=== PATIENT | female | born 1990 | race Caucasian/White ===

== ENCOUNTER 2019-06-27 13:32 | Inpatient (IN) ==
[2019-06-27 13:48] LABS: URINE SOURCE VOIDED
[2019-06-27] MEDS ORDERED: AMPICILLIN 2 GM in NS 100 ML IV ONE (14:03)
[2019-06-27] MEDS ORDERED: REGLAN PO PRN (14:03)
[2019-06-27] MEDS ORDERED: PEPCID PO PRN ×2 (14:03)
[2019-06-27] MEDS ORDERED: KEFZOL 2 GM/D5W 2 GM/50 ML IVPB IV PRN (14:03)
[2019-06-27] MEDS ORDERED: ZOFRAN IV PRN (14:03)
[2019-06-27] MEDS ORDERED: STADOL IV PRN (14:03)
[2019-06-27] MEDS ORDERED: TYLENOL PO PRN (14:03)
[2019-06-27] MEDS ORDERED: PEPCID IV PRN (14:03)
[2019-06-27 14:14] LABS: UR AMPHETAMINES QUAL NONE DETECTED (NONE DETECT); UR BARBITUATES QUAL NONE DETECTED (NONE DETECT); UR BENZODIAZEPIN QUAL NONE DETECTED (NONE DETECT); UR CANNABINOIDS QUAL NONE DETECTED (NONE DETECT); UR COCAINE QUAL NONE DETECTED (NONE DETECT); UR METHADONE QUAL NONE DETECTED (NONE DETECT); UR OPIATES QUAL NONE DETECTED (NONE DETECT); UR OXYCODONE QUAL NONE DETECTED (NONE DETECT); UR PCP QUAL NONE DETECTED (NONE DETECT)
[2019-06-27] MEDS ORDERED: SODIUM CHLORIDE 0.9% INJ SCH (14:15)
[2019-06-27] MEDS ORDERED: PITOCIN 30 UNITS/NS 30 UNIT/500 ML IV.SOLN IV SCH ×2 (14:15→16:30)
[2019-06-27] MEDS ORDERED: MINERAL OIL PO PRN (14:20)
[2019-06-27] MEDS ORDERED: XYLOCAINE-MPF 1% INJ PRN (14:21)
[2019-06-27] MEDS: LR 1,000 ML IV SCH ×2 (14:50→15:45)
[2019-06-27 14:54] LABS: BASO# 0.03 X1000 (0.0-0.2); BASO% 0.2 % (0.0-0.8); EOS# 0.16 X1000 (0.0-0.7); EOS% 0.8 % (0.0-10.0); HEMATOCRIT 36.4 % (37.0-47.0); HEMOGLOBIN 12.1 g/dL (12.0-16.0); IMM GRAN# 0.06 X1000 (0.0-0.04); IMM GRAN% 0.3 % (0.0-0.5); LYMPH# 2.56 X1000 (1.2-3.4); LYMPH% 13.6 % (20.5-51.1); MCH 28.1 PG (27-31); MCHC 33.2 g/dL (33-37); MCV 84.7 FL (81-99); MONO# 1.38 X1000 (0.11-0.59); MONO% 7.3 % (1.7-9.3); MPV 9.2 FL (7.4-10.4); NEUT# 14.64 X1000 (1.4-6.5); NEUT% 77.8 % (42.2-75.2); PLT 290 X1000 (130-400); RDW 14.3 % (11.5-14.5); WBC 18.83 X1000 (4.8-10.8)
--- NOTE | 2019-06-27 14:59 | Diag Imaging Result Doc PS360 ---
EXAM: US OBS COMPLETE > 14 WKS HISTORY: position TECHNIQUE: Limited OB ultrasound for position COMPARISON: None. FINDINGS: Limited ultrasound. Fetus appears to be in cephalic presentation. Electronically signed by James Meyer 06/27/2019 2:57 PM
[2019-06-27 15:06] LABS: BILIRUBIN URINE SMALL (NEGATIVE); BLOOD URINE MODERATE (NEGATIVE); COLOR YELLOW; GLUCOSE URINE NEGATIVE (NEGATIVE); KETONE URINE TRACE mg/dL (NEGATIVE); LEUKOCYTES URINE LARGE (NEGATIVE); NITRITE URINE NEGATIVE (NEGATIVE); PH URINE 6.5; PROTEIN URINE 70 mg/dL (NEGATIVE); SP GRAVITY URINE 1.034; TURBIDITY URINE HAZY (CLEAR); UROBILINOGEN URINE 6 mg/dL (NORMAL)
--- NOTE | 2019-06-27 16:20 | OPERATIVE NOTE ---
PROCEDURE DATE: 06/27/2019 PROCEDURE: Normal spontaneous vaginal delivery ESTIMATED BLOOD LOSS: 400 mL COMPLICATIONS: None ANESTHESIA: None FINDINGS: A live-born male , cephalic position. Apgars 8 and 9, 8 pounds 4 ounces. DESCRIPTION O F PROCEDURE: The patient presented to Labor and Delivery in active labor and underwent spontaneous rupture of membranes at approximately 9 cm. Went rapidly to complete. Received 1 dose of group B strep prophylaxis. She pushed for approximately 2 contractions and delivered over intact perineum a live-born , handed to the maternal abdomen. Uncomplicated delivery. The cord was clamped x2 and cut. The placenta delivered after approximately 20 minutes of third stage labor with Valsalva, intact with 3 vessel cord. The perineum was inspected and found to be hemostatic and intact.
--- NOTE | 2019-06-27 16:23 | HISTORY AND PHYSICAL ---
HISTORY OF PRESENT ILLNESS: The patient is a 28-year-old, 2, para 1, who has no local care. States she is about 38-1/2 weeks gestation from a care visit she made in [place], until about 28 weeks. She states that she had an abnormal 1 hour glucose at that time and no treatment post. She presents to labor and delivery in active phase of labor. Vertex presentation, unknown group B strep, and intact membranes. PREVIOUS MEDICAL HISTORY: Negative. PREVIOUS SURGICAL HISTORY: Negative. OB HISTORY: Pertinent for 1 vaginal delivery 7 years ago, 6 pounds and 5 ounces. No complications. GYNECOLOGICAL HISTORY: Negative. No STDs. MEDICINES: vitamins. ALLERGIES TO MEDICINES: None. FAMILY HISTORY: Noncontributory. REVIEW OF SYSTEMS: Negative for chest pain, shortness of breath, headache, cough, runny nose, fever, sore throat. PHYSICAL EXAMINATION: GENERAL: This is a well-developed, well-nourished woman, appearing her stated age. HEENT: Grossly normal. LUNGS: Unlabored breathing. HEART: Regular rate and rhythm. ABDOMEN: Gravid, obese, and protuberant. EXTREMITIES: Without clubbing, cyanosis, or edema. PELVIC EXAMINATION: At 5 cm, bulging bag of water per RN. ASSESSMENT: A 28-year-old 2, para 1, at 38-1/2 weeks gestation, in active phase of labor. 1. Ampicillin for group B strep prophylaxis for unknown group B strep. 2. Estimated weight is 3600 g. 3. Anticipate normal spontaneous vaginal delivery. 4. We will try to obtain records from previous medical doctor in [place]. 5. Ultrasound verifies vertex presentation. 6. well-being reassured, reactive tracing. 7. Rh neg, rhogam w/u post delivery [facility]
[2019-06-27 16:25] LABS: RAPID HIV PRESUMPTIVE NEGATIVE; RPR NON-REACTIVE (NONREACTIVE); RUBELLA SCREEN IMMUNE (IMMUNE)
[2019-06-27] MEDS ORDERED: AMBIEN PO PRN (16:28)
[2019-06-27] MEDS ORDERED: CYTOTEC PO PRN (16:28)
[2019-06-27] MEDS ORDERED: PERI MEDS (DERMOPLAST/NUPERCAINAL/TUCKS) MISC PRN (16:28)
[2019-06-27] MEDS ORDERED: BENADRYL PO PRN (16:28)
[2019-06-27] MEDS ORDERED: NORCO-10 PO PRN (16:28)
[2019-06-27] MEDS ORDERED: BENADRYL IV PRN (16:28)
[2019-06-27] MEDS ORDERED: HYDROXYZINE IM PRN (16:28)
[2019-06-27] MEDS ORDERED: PITOCIN IM PRN (16:28)
[2019-06-27] MEDS ORDERED: M-M-R II VACCINE SUBQ ONE (16:28)
[2019-06-27] MEDS ORDERED: BOOSTRIX VACCINE IM ONE (16:28)
[2019-06-27] MEDS ORDERED: ATARAX PO PRN (16:28)
[2019-06-27] MEDS ORDERED: NORCO-5 PO PRN (16:28)
[2019-06-27] MEDS ORDERED: PITOCIN 20 UNITS/NS 20 UNITS/1,000 ML IV.SOLN IV SCH (16:30)
[2019-06-27] MEDS ORDERED: AMPICILLIN 1 GM in NS 50 ML IV SCH (18:04)
[2019-06-27] MEDS: MOTRIN PO PRN (18:30)
[2019-06-28 05:17] LABS: BASO# 0.03 X1000 (0.0-0.2); BASO% 0.1 % (0.0-0.8); EOS# 0.13 X1000 (0.0-0.7); EOS% 0.6 % (0.0-10.0); HEMATOCRIT 30.2 % (37.0-47.0); HEMOGLOBIN 9.8 g/dL (12.0-16.0); IMM GRAN# 0.05 X1000 (0.0-0.04); IMM GRAN% 0.2 % (0.0-0.5); LYMPH# 3.53 X1000 (1.2-3.4); LYMPH% 16.6 % (20.5-51.1); MCH 27.9 PG (27-31); MCHC 32.5 g/dL (33-37); MONO# 1.37 X1000 (0.11-0.59); MONO% 6.5 % (1.7-9.3); MPV 9.1 FL (7.4-10.4); NEUT# 16.13 X1000 (1.4-6.5); PLT 242 X1000 (130-400); RBC 3.51 XMIL (4.2-5.4); RDW 14.4 % (11.5-14.5); WBC 21.24 X1000 (4.8-10.8)
--- NOTE | 2019-06-28 08:55 | OB/GYN PROGRESS NOTE ---
- Subjective PP1 vssaf no cx, breast s/nt -cce hgb 9.8 dn fm 12.1 A PP1 routine care ambulating home tomorrow OB Physical Exam Vital Signs - 8 hr 06/28/19 02:49 Temperature 97.0 F L Pulse Rate 73 Respiratory Rate 18 Blood Pressure 120/72 - CONSTITUTIONAL General Appearance: appears well Active Medications Generic Name Dose Route Start Last Admin Trade Name Freq PRN Reason Stop Dose Admin Acetaminophen 650 mg 06/27/19 14:03 Tylenol PO Q4-6H PRN PRN Headache Hydrocodone Bitart/Acetaminophen 1 each 06/27/19 16:28 [place]-5 PO Q3-4H PRN PRN Pain (1-6 on Pain Scale) Hydrocodone Bitart/Acetaminophen 1 each 06/27/19 16:28 [place]-10 PO Q3-4H PRN PRN Pain (7-10 on Pain Scale) Benzocaine 1 each 06/27/19 16:28 [place]ena Meds (Dermoplast/Nupercainal/Tucks) MISC 3-4XDAY PRN PRN episiotomy/hemorrhoids Butorphanol Tartrate 2 mg 06/27/19 14:03 06/27/19 14:58 Stadol IV 1 mg PRN PRN Administration Pain Diphenhydramine HCl 12.5 mg 06/27/19 16:28 Benadryl IV Q4H PRN PRN Itching Diphenhydramine HCl 25 mg 06/27/19 16:28 Benadryl PO Q4H PRN PRN Itching Famotidine 40 mg 06/27/19 14:03 Pepcid PO Q12H PRN PRN GI upset or indigestion Famotidine 20 mg 06/27/19 14:03 Pepcid IV Q12H PRN PRN GI upset or indigestion Famotidine 20 mg 06/27/19 14:03 Pepcid PO ONCE PRN PRN section Hydroxyzine HCl 50 mg 06/27/19 16:28 Atarax PO Q3-4H PRN PRN Nausea Hydroxyzine HCl 50 mg 06/27/19 16:28 Hydroxyzine IM Q3-4H PRN PRN Nausea Lactated Ringer's 1,000 mls @ 0 mls/hr 06/27/19 14:15 06/27/19 15:45 Lr IV 999 mls/hr .Q0M MAIRA Administration As Directed Oxytocin/Sodium Chloride 30 unit in 500 mls @ 0 mls/hr 06/27/19 14:15 06/27/19 15:45 Pitocin 30 Units/Ns IV 500 mls/hr .Q0M MAIRA Administration As Directed Oxytocin/Sodium Chloride 20 units in 1,000 mls @ 0 mls/hr 06/27/19 16:30 Pitocin 20 Units/Ns IV .Q0M MAIRA As Directed Oxytocin/Sodium Chloride 30 unit in 500 mls @ 500 mls/hr 06/27/19 16:30 Pitocin 30 Units/Ns IV .Q1H MAIRA Ibuprofen 800 mg 06/27/19 16:28 06/27/19 18:30 Motrin PO 800 mg Q8H PRN PRN Administration cramping Lidocaine HCl 30 ml 06/27/19 14:21 Xylocaine-Mpf 1% INJ PRN PRN perineal repair Metoclopramide HCl 10 mg 06/27/19 14:03 Reglan PO ONCE PRN PRN section Misoprostol 800 microgm 06/27/19 16:28 Cytotec PO PRN PRN Severe bleeding Ondansetron HCl 4 mg 06/27/19 14:03 Zofran IV PRN PRN Nausea Oxytocin 20 unit 06/27/19 16:28 Pitocin IM PRN PRN Severe bleeding Senna/Docusate Sodium 1 each 06/27/19 21:00 Pericolace PO QHS MAIRA Sodium Chloride 5 - 10 ml 06/27/19 14:15 Sodium Chloride 0.9% INJ DIRECTED [facility] Zolpidem Tartrate 10 mg 06/27/19 16:28 Ambien PO HS PRN PRN Sleep Laboratory Results - last 24 hr 06/27/19 06/27/19 06/27/19 13:30 13:30 14:35 WBC RBC Hgb Hct MCV MCH MCHC RDW Std Deviation Plt Count MPV Immature Gran % (Auto) Neut % (Auto) Lymph % (Auto) [place] % (Auto) Eos % (Auto) Baso % (Auto) Immature Gran # (Auto) Neut # (Auto) Lymph # (Auto) [place] # (Auto) Eos # (Auto) Baso # (Auto) Segmented Neutrophils Glucose 67 L Urine Source VOIDED Urine Color YELLOW Urine Turbidity HAZY Urine pH 6.5 Ur Specific [place] 1.034 Urine Protein 70 A Ur Glucose (Stick) NEGATIVE Ur Ketones (Stick) TRACE A Urine Blood MODERATE A Urine Nitrite NEGATIVE Urine Bilirubin SMALL A Urobilinogen Dipstick 6 A Urine Leukocytes LARGE A Urine Opiates Screen NONE DETECTED Ur Oxycodone Screen NONE DETECTED Ur Methadone, Qual NONE DETECTED Ur Barbiturates Screen NONE DETECTED Ur Phencyclidine Scrn NONE DETECTED Ur Amphetamines Screen NONE DETECTED U Benzodiazepines Scrn NONE DETECTED Urine Cocaine Screen NONE DETECTED U Cannabinoids Screen NONE DETECTED RPR HIV 1&2 Antibody Rapid Rubella Immunity Screen Blood Type ABO/Rh Blood Type Confirm Antibody Screen RhIG Candidate? 06/27/19 06/27/19 06/27/19 14:35 14:35 14:35 WBC 18.83 H RBC 4.30 Hgb 12.1 Hct 36.4 L MCV 84.7 MCH 28.1 MCHC 33.2 RDW Std Deviation 14.3 Plt Count 290 MPV 9.2 Immature Gran % (Auto) 0.3 Neut % (Auto) 77.8 H Lymph % (Auto) 13.6 L [place] % (Auto) 7.3 Eos % (Auto) 0.8 Baso % (Auto) 0.2 Immature Gran # (Auto) 0.06 H Neut # (Auto) 14.64 H Lymph # (Auto) 2.56 [place] # (Auto) 1.38 H Eos # (Auto) 0.16 Baso # (Auto) 0.03 Segmented Neutrophils Glucose Urine Source Urine Color Urine Turbidity Urine pH Ur Specific [place] Urine Protein Ur Glucose (Stick) Ur Ketones (Stick) Urine Blood Urine Nitrite Urine Bilirubin Urobilinogen Dipstick Urine Leukocytes Urine Opiates Screen Ur Oxycodone Screen Ur Methadone, Qual Ur Barbiturates Screen Ur Phencyclidine Scrn Ur Amphetamines Screen U Benzodiazepines Scrn Urine Cocaine Screen U Cannabinoids Screen RPR NON-REACTIVE HIV 1&2 Antibody Rapid PRESUMPTIVE NEGATIVE Rubella Immunity Screen IMMUNE Blood Type O NEGATIVE ABO/Rh Blood Type Confirm Antibody Screen NEGATIVE RhIG Candidate? 06/27/19 06/28/19 06/28/19 17:10 05:00 05:00 WBC 21.24 H RBC 3.51 L Hgb 9.8 L D Hct 30.2 L MCV 86.0 MCH 27.9 MCHC 32.5 L RDW Std Deviation 14.4 Plt Count 242 MPV 9.1 Immature Gran % (Auto) 0.2 Neut % (Auto) 76.0 H Lymph % (Auto) 16.6 L [place] % (Auto) 6.5 Eos % (Auto) 0.6 Baso % (Auto) 0.1 Immature Gran # (Auto) 0.05 H Neut # (Auto) 16.13 H Lymph # (Auto) 3.53 H [place] # (Auto) 1.37 H Eos # (Auto) 0.13 Baso # (Auto) 0.03 Segmented Neutrophils Not Reportable Glucose Urine Source Urine Color Urine Turbidity Urine pH Ur Specific [place] Urine Protein Ur Glucose (Stick) Ur Ketones (Stick) Urine Blood Urine Nitrite Urine Bilirubin Urobilinogen Dipstick Urine Leukocytes Urine Opiates Screen Ur Oxycodone Screen Ur Methadone, Qual Ur Barbiturates Screen Ur Phencyclidine Scrn Ur Amphetamines Screen U Benzodiazepines Scrn Urine Cocaine Screen U Cannabinoids Screen RPR HIV 1&2 Antibody Rapid Rubella Immunity Screen Blood Type ABO/Rh O NEGATIVE Blood Type Confirm O NEGATIVE Antibody Screen RhIG Candidate? NO
[2019-06-28 09:13] LABS: HIV ANTIBODY SCREEN SEE COMMENTS
[2019-06-28 12:05] LABS: HEPATITIS B SURFACE ANTIGEN SEE COMMENTS
[2019-06-28] MEDS: MOTRIN PO PRN (18:54)
[2019-06-28] MEDS: PERICOLACE PO SCH ×2 (21:54→22:00)
[2019-06-29 07:37] VITALS: BP 115/55
--- NOTE | 2019-06-29 08:26 | DISCHARGE SUMMARY ---
ADMISSION DATE: 06/27/2019 DISCHARGE DATE: 06/29/2019 HOSPITAL COURSE: Martina is a 28-year-old, 2, para 1 now 2, who presents in active phase of labor with no local care. She presented 5 cm dilated with bulging bag of water. Received 1 dose of antibiotics for unknown group B strep. Ruptured membranes and pushed 2 times, and delivered a live-born infant. Please see delivery note for details. Her course was uncomplicated. day #1, she is afebrile with stable vital signs. She is ambulating, voiding, tolerating a regular diet. Hemoglobin is 9.8, down from 12.1. On day #2, ambulating, voiding, tolerating a regular diet. Vital signs stable, afebrile. She is discharged home in stable condition. She is asked to follow up in the office in 6 weeks. Call the office for pain, fever greater than 100.4, abnormal uterine bleeding. Maintain pelvic rest and regular diet. Continue vitamins and iron. A prescription for Motrin provided.
[2019-06-29] MEDS: MOTRIN PO PRN (11:02)
== END 2019-06-29 12:40 | disposition home or self-care (01) | DRG 807 ==
LOC: OPLD 13:32 → LD 13:38
PROVIDERS: ADMIT Obstetrics & Gynecology; ATTEND Obstetrics & Gynecology